=== PATIENT | male | born 1965 | race African-American/Black ===

== ENCOUNTER 2017-07-16 16:26 | Outpatient (CLI) | payer OTHER ==
[2017-07-16 16:53] LABS: #Basophils 0.1 thou/uL (0.0-0.2); #Eosinphils 0.2 thou/uL (0.0-0.7); #Lymphocytes 3.3 thou/uL (1.20-3.40); #Monocytes 0.7 thou/uL (0.11-0.59); #Neutrophils 3.3 thou/uL (1.40-6.50); %Basophils 1.6 % (0.0-1.0); %Eosinophils 3.2 % (0.0-10.0); %Lymphocytes 42.8 % (21.0-51.0); %Monocytes 9.3 % (0.0-10.0); %Neutrophils 43.1 % (42.0-75.0); Hemoglobin 16.9 g/dL (14.0-18.0); Mean Corpuscular HGB CONC 34.3 g/dL (32.0-36.0); Mean Corpuscular Hemoglobin 33.5 pg (27.0-31.0); Mean Corpuscular Volume 97.8 fl (80.0-94.0); Mean Platelet Volume 5.6 fL (7.4-10.4); Platelet Count 233 thou/uL (130-400); RBC Distribution Width 12.6 % (11.5-14.5); Red Blood Cell (RBC) Count 5.04 mill/uL (4.70-6.10); White Blood Cell (WBC) Count 7.6 thou/uL (4.8-10.8)
[2017-07-16 16:54] LABS: Amphetamine Not Detected (NotDetected); Barbiturates Screen Not Detected (NotDetected); Benzodiazepine Screen Not Detected (NotDetected); Cocaine Metabolite Screen Not Detected (NotDetected); Medtox Control Line Valid? VALID (VALID); Methadone Not Detected (NotDetected); Methamphetamine Not Detected (NotDetected); Opiate Screen Not Detected (NotDetected); Oxycodone Screen Not Detected (NotDetected); Phencyclidine (PCP) Not Detected (NotDetected); THC/Cannabinoid Screen Detected (NotDetected); Tricyclic Screen Not Detected (NotDetected)
[2017-07-16 17:17] LABS: ALT (SGPT) 17 U/L (8-55); AST (SGOT) 20 U/L (5-34); Albumin 4.5 g/dL (3.5-5.0); Alkaline Phosphatase 64 U/L (40-150); Anion Gap 12 mmol/L (10-20); BUN (Urea Nitrogen) 6 mg/dL (8.9-20.6); Bilirubin, Total 0.9 mg/dL (0.2-1.2); Calc. Creatinine Clearance 0 mL/min (70-130); Calcium 9.6 mg/dL (7.8-10.44); Carbon Dioxide 29 mmol/L (22-29); Chloride 102 mmol/L (98-107); Estimated GFR-MDRD Greater than 90; Globulin 3.6 g/dL (2.4-3.5); Glucose 97 mg/dL (70-105); Potassium 4.2 mmol/L (3.5-5.1); Protein, Total 8.1 g/dL (6.0-8.3); Sodium 139 mmol/L (136-145)
== END 2017-07-16 16:27 | disposition home or self-care (01) ==
LOC: HPCALD 16:26
PROVIDERS: ATTEND Family Medicine
DX: M54.41 Lumbago with sciatica, right side (principal); Z79.891 Long term (current) use of opiate analgesic
CPT/HCPCS: 36415; 80053; 80306; 84443; 85025

== ENCOUNTER 2017-08-02 09:03 | Outpatient (CLI) | payer OTHER ==
--- NOTE | 2017-08-02 16:21 | RAD ---
LUMBAR SPINE 08/02/17 AP, lateral and spot views were obtained. No fracture or dislocation was seen. The disc spaces are a ll normal in height. There are anterior osteophytes at all levels. There is mild loss of the normal lumbar lordosis which could be due to spasm. The SI joints show some sclerosis bilaterally. IMPRESSION: 1. Mild diffuse arthritic changes of the spine without any focal disc space abnormality. 2. Sclerotic SI joints. POS: HOME
== END 2017-08-02 09:04 | disposition home or self-care (01) ==
LOC: BURRAD 09:03
PROVIDERS: ATTEND Family Medicine
DX: M54.41 Lumbago with sciatica, right side (principal); M47.9 Spondylosis, unspecified
CPT/HCPCS: 72100

== ENCOUNTER 2017-10-21 11:12 | Outpatient (CLI) | payer OTHER ==
--- NOTE | 2017-10-21 19:53 | RAD ---
CHEST TWO VIEWS: 10/21/2017 Comparison is made with the 10/05/2012 study. The heart is normal in size. No acute infiltrate or effusion was seen. The lungs are clear. There is some minor thickening along the minor fissure in the right lung which is probably of no real conse quence. Some calcified nodes are seen in the right hilum, not a new finding. Degenerative changes a re seen in the spine. The trachea is midline. IMPRESSION: No acute thoracic findings. POS: HOME
== END 2017-10-21 11:13 | disposition home or self-care (01) ==
LOC: BUREKG 11:12
PROVIDERS: ATTEND Family Medicine
DX: Z01.818 Encounter for other preprocedural examination (principal)
CPT/HCPCS: 71020

== ENCOUNTER 2021-06-27 10:50 | Outpatient (CLI) | payer OTHER | END 2021-06-27 10:51 | disposition home or self-care (01) | LOC: BURRAD 10:50 | PROVIDERS: ATTEND Family Medicine | DX: R09.02 Hypoxemia (principal) | CPT/HCPCS: 71046 ==